=== PATIENT | male | born 1985 | race Caucasian/White ===

== ENCOUNTER 2022-11-27 12:56 | Emergency (ER) | payer OTHER, SELFPAY ==
[2022-11-27 13:13] VITALS: BP 118/69; PULSE 59; RESP 16; TEMP 37.1; O2SAT 99; BMI 24.4
--- NOTE | 2022-11-27 13:18 | DI.RAD.S_ITS ---
PROCEDURE: XR ELBOW LT MIN 3V INDICATIONS: injury/swelling TECHNIQUE: 3 views of the elbow were acquired. COMPARISON: None. FINDINGS: Bones: No fractures or dislocations. No suspicious bony lesions. Soft tissues: No elbow joint effusion. No suspicious soft tissue calcifications. IMPRESSION: Normal left elbow Dictated by: Kamar Eller M.D. on 11/27/2022 at 13:44 Approved by: Kamar Eller M.D. on 11/27/2022 at 13:45
--- NOTE | 2022-11-27 15:12 | ED_ITS ---
HPI - Skin/Abscess/Foreign Bdy <CONSTANTINO Grant Last Filed: 11/27/22 17:59> General Chief complaint: Skin/Abscess/Foreign Body Stated complaint: swollen LT elbow cut T-14 Time Seen by Provider: 11/27/22 15:12 Source: patient Mode of arrival: Ambulatory Limitations: no limitations History of Present Illness HPI narrative: This is a 36-year-old male presents emergency department due to left elbow pain and swelling. Two weeks ago he fell while playing hockey and had a small cut to his left elbow but noticed that it was increasing redness and warmth as of last night. Patient denies any significant pain to the elbow and denies any decreases in range of motion. No numbness or tingling. Related Data Previous Rx's Medication Instructions Recorded cephalexin 500 mg capsule 500 mg PO QID #28 caps 11/27/22 Allergies Allergy/AdvReac Type Severity Reaction Status Date / Time No Known Drug Allergies Allergy Verified 11/27/22 13:13 Review of Systems <CONSTANTINO Grant Last Filed: 11/27/22 17:59> Review of Systems Narrative: GENERAL: Denies chills, fatigue, malaise, fever, sweats. HEENT: Denies sinus pain, ear pain, sore throat, difficulty swallowing, dizzines s. RESPIRATORY: Denies dyspnea, cough, wheezing, hemoptysis, sputum. CARDIOVASCULAR: Denies chest pain, palpitations, orthopnea, edema, GASTROINTESTINAL: Denies nausea, vomiting, abdominal pain, diarrhea, constipation, melena. : Denies dysuria, frequency, incontinence, hematuria, urinary retention. MUSCULOSKELETAL: Left elbow swelling with erythema to the skin, denies weakness, joint pain, or bony pain SKIN: Denies rash, skin lesions, or other NEUROLOGIC: Denies weakness, headache, numbness, change in speech, confusion, seizures, incoordination. PSYCHIATRIC: No concerning psychosocial issues. 12 point review of systems is negative except for those stated above Patient History <CONSTANTINO Grant Last Filed: 11/27/22 17:59> Social History Smoking Status: Never smoker Smoking Status: Never smoker alcohol intake frequency: a few times a week Substance Use Type: does not use Exam <CONSTANTINO Grant Last Filed: 11/27/22 17:59> Narrative Exam Narrative: GENERAL: Well-developed patient, in mild distress. HEAD: Atraumatic. Normocephalic. EYES: Pupils equal round and reactive. Extraocular motions intact. No scleral icterus. No injection or drainage. ENT: Nose without bleeding, purulent drainage. Throat without erythema, tonsillar hypertrophy or exudate. Airway patent. NECK: Trachea midline. Non tender GASTROINTESTINAL: Abdomen soft, non-tender, nondistended. EXTREMITIES: Area of fluctuance of the left elbow with small well-healed abrasion. There is some mild erythema and mildly more warm to the touch. No joint stiffness and no significant pain with palpation. BACK: Nontender without deformity or crepitance. No flank tenderness. NEURO: AOx3. SKIN: No rash or erythema of visible areas Initial Vital Signs Initial Vital Signs: Vital Signs Temperature 98.7 F 11/27/22 13:13 Pulse Rate 59 L 11/27/22 13:13 Respiratory Rate 16 11/27/22 13:13 Blood Pressure 118/69 11/27/22 13:13 Pulse Oximetry 99 11/27/22 13:13 Oxygen Delivery Method Room Air 11/27/22 13:13 <Jazzy Nuñez DO - Last Filed: 11/27/22 20:06> Initial Vital Signs Initial Vital Signs: Vital Signs Temperature 98.7 F 11/27/22 13:13 Pulse Rate 59 L 11/27/22 13:13 Respiratory Rate 16 11/27/22 13:13 Blood Pressure 118/69 11/27/22 13:13 Pulse Oximetry 99 11/27/22 13:13 Oxygen Delivery Method Room Air 11/27/22 13:13 Course <Roque Santos PA-C - Last Filed: 11/27/22 17:59> Orders Ordered: ED Orders 11/27/22 13:18 XR elbow LT min 3V Stat Vital Signs Vital signs: Vital Signs - 8 hr 11/27/22 13:13 11/27/22 15:54 Temperature 98.7 F Pulse Rate 59 L 62 Respiratory Rate 16 18 Blood Pressure 118/69 123/70 Pulse Oximetry 99 99 Oxygen Delivery Method Room Air Room Air <Jazzy Nuñez DO - Last Filed: 11/27/22 20:06> Orders Ordered: ED Orders 11/27/22 13:18 XR elbow LT min 3V Stat Vital Signs Vital signs: Vital Signs - 8 hr 11/27/22 13:13 11/27/22 15:54 Temperature 98.7 F Pulse Rate 59 L 62 Respiratory Rate 16 18 Blood Pressure 118/69 123/70 Pulse Oximetry 99 99 Oxygen Delivery Method Room Air Room Air MDM - Skin/Abscess/Foreign Bdy <Roque Santos PA-C - Last Filed: 11/27/22 17:59> Imaging Data Extremity x-ray #1: Radiologist's Impression: [address] [address] XRay Report Signed Patient: Jalen Bates MR#: [id number] : 1985 Acct:[id number] Age/Sex: 36 / M Date of Service: 11/27/22 Loc: ED Accession Number: [id number] ?? Procedure: XR elbow LT min 3V Ordering Provider: Jazzy Nuñez D.O. PROCEDURE:? XR ELBOW LT MIN 3V ? INDICATIONS:? injury/swelling ? TECHNIQUE:? 3 views of the elbow were acquired.? ? COMPARISON:? None. ? FINDINGS:? ? Bones:? No fractures or dislocations.? No suspicious bony lesions.? ? Soft tissues:? No elbow joint effusion.? No suspicious soft tissue calcifications.? ? ? IMPRESSION:? Normal left elbow ? ? Dictated by: Kamar Eller M.D. on 11/27/2022 at 13:44 ? ? Approved by: Kamar Eller M.D. on 11/27/2022 at 13:45 ? MDM Narrative Medical decision making narrative: MDM * differential diagnosis includes but not limited to olecranon bursitis, ab scess, cellulitis, elbow fracture, hematoma * Prior records reviewed: Patient has not been here for similar complaints in the past * My lab interpretation: None obtained * My imgaing interpretation: Left elbow x-ray negative for any acute fractures * Clinical Decision Rules/Scores evaluated: None * Independent discussions with: None ED Course: This is a 36-year-old male presents emergency department due to suspected olecranon bursitis of the left elbow. Patient does have a small healing abrasion to the left elbow. He is concerned this infected as it has become more red and warm over the last day. Will treat with oral antibiotics in the event to avoid any kind of infection. Recommended NSAIDs,, ice, and sling for comfort. Shared Decision Making: Discussed plan patient who is comfortable with the plan. Social Considerations: None Disposition: Discharged to home Discharge Plan Departure Patient Disposition: Home Clinical Impression: Bursitis, olecranon Instructions: DI for Elbow Bursitis Activity Restrictions/Additional Instructions: Thank you for coming to the [facility] Emergency Department today. As we discussed his suspect your ascending colon bursitis. Please read the attached information for more information about this. This should improve over time. Please follow up with the primary care provider if improving. Please take oral antibiotics to avoid any kind of infection. I sent the prescription to [facility] in [place]. I hope you feel better soon. Prescriptions: New cephalexin 500 mg capsule 500 mg PO QID Qty: 28 0RF Referrals: ProviderConnie [Primary Care Provider] - Stand Alone Forms: Patient Portal/API <Jazzy Nuñez DO - Last Filed: 11/27/22 20:06> Cosign ED Attending Nava Attestation: I was immediately available in the department for consultation.
[2022-11-27 15:54] VITALS: BP 123/70; PULSE 62; RESP 18; O2SAT 99
== END 2022-11-27 15:55 | disposition home or self-care (01) ==
PROVIDERS: Emergency Provider Physician Assistant Medical
DX: M70.22 Olecranon bursitis, left elbow (principal)
CPT/HCPCS: 73080; 99281; 99283